=== PATIENT | female | born 1975 | race Caucasian/White ===

== ENCOUNTER 2016-10-16 18:05 | Emergency (ER) | payer BC ==
[2016-10-16 18:20] VITALS: TEMP 97.5
[2016-10-16] MEDS ORDERED: EPINEPHrine HCL AMP 1 MG/ML AMP IM ONE (18:20)
[2016-10-16] MEDS ORDERED: diphenhydrAMINE HCL 50 MG/ML VIAL IM ONE (18:20)
[2016-10-16] MEDS ORDERED: predniSONE 10 MG TAB PO ONE (19:08)
--- NOTE | 2016-10-16 19:12 | ED.PDOC ---
History of Present Illness - General Chief Complaint: Allergic Reaction Stated Complaint: allergic reaction Time Seen by Provider: 10/16/16 19:07 Source: patient, RN notes reviewed, Vital Signs reviewed Exam Limitations: no limitations - History of Present Illness Initial Comments: Ms. Angle Juarez 41 y/o female undergoing allergy immunotherapy 3 x a week stated that she received one this afternoon and one hour later felt sob,chest heaviness ,feels tongue got big. Timing/Duration: 1-3 hours Severity: moderate Improving Factors: nothing Worsening Factors: other - see hpi Associated Symptoms: shortness of breath Allergies/Adverse Reactions: Allergies NO KNOWN ALLERGY Allergy (Verified 10/16/16 18:20) Home Medications: Ambulatory Orders Cetirizine HCl [ZyrTEC] 10 mg PO DAILY 10/16/16 Epinephrine [Epipen 2-Po] 0.3 mg IJ ONCE #1 ml 10/16/16 Review of Systems - Review of Systems Constitutional: States: no symptoms reported EENTM: States: no symptoms reported Respiratory: States: see HPI Cardiology: States: no symptoms reported Gastrointestinal/Abdominal: States: no symptoms reported Genitourinary: States: no symptoms reported Musculoskeletal: States: no symptoms reported Skin: States: no symptoms reported Neurological: States: no symptoms reported Endocrine: States: no symptoms reported Hematologic/Lymphatic: States: no symptoms reported Past Medical History (General) - Patient Medical History Hx Congestive Heart Failure: No Hx Diabetes: No Surgical History: other - ,knee,cardiac and uterine ablation - Vaccination History Hx Influenza Vaccination: Yes - Social History Hx Tobacco Use: No Family Medical History - Family History Mother Family History: Unknown Living Status: Unknown Physical Exam - Physical Exam General Appearance: Alert, Anxious, No apparent distress Eye Exam: bilateral normal Ears, Nose, Throat: hearing grossly normal, normal ENT inspection, normal pharynx Neck: non-tender, full range of motion, supple Respiratory: chest non-tender, lungs clear, normal breath sounds, no respiratory distress, no accessory muscle use Cardiovascular/Chest: normal peripheral pulses, regular rate, rhythm, no edema, no gallop, no JVD, no murmur Peripheral Pulses: radial,right: 2+, radial,left: 2+ Gastrointestinal/Abdominal: normal bowel sounds, non tender, soft, no organomegaly, no pulsatile mass Back Exam: normal inspection, no CVA tenderness, no vertebral tenderness Extremity: normal range of motion, non-tender, normal inspection, no pedal edema Neurologic: no motor/sensory deficits, alert, normal mood/affect, oriented x 3 Skin Exam: normal color, warm/dry Progress - Results/Orders Results/Orders: feeling better after a odse of 0.3mg epinephrine i.m. Departure - Departure Clinical Impression: Anaphylaxis Qualifiers: Encounter type: initial encounter Qualified Code(s): T78.2XXA - Anaphylactic shock, unspecified, initial encounter Time of Disposition: 19:17 Disposition: Discharge to Home or Self Care Departure Forms: ED Discharge - Pt. Copy, Patient Portal Self Enrollment Referrals: Leonardo Vega III, MD [Primary Care Provider] - 1-2 Weeks Prescriptions: Epinephrine [Epipen 2-Po] 0.3 mg IJ ONCE #1 ml Home Medications: Ambulatory Orders Cetirizine HCl [ZyrTEC] 10 mg PO DAILY 10/16/16 Epinephrine [Epipen 2-Po] 0.3 mg IJ ONCE #1 ml 10/16/16 Additional Instructions: RETURN TO EMERGENCY ROOM NEEDED
[2016-10-16 20:02] VITALS: BP 109/71; O2SAT 99
== END 2016-10-16 20:00 | disposition home or self-care (01) ==
LOC: ER 18:05
DX: T78.2XXA Anaphylactic shock, unspecified, initial encounter (principal)
CPT/HCPCS: J1200; J7512

== ENCOUNTER → 2016-12-10 | Outpatient (CLI) | payer SELFPAY ==
--- NOTE | 2016-12-10 08:45 | RAD ---
EXAM DESCRIPTION: Shoulder,Right 2 or More Views CLINICAL HISTORY: RIGHT SHOULDER PAIN COMPARISON: None Available. TECHNIQUE: 4 views of the right shoulder. FINDINGS: The shoulder is well mineralized and normally aligned with very little degenerative change. There is a benign bony spur or excrescence extending from the inferior surface of the distal clavicle towards the coracoid process consistent with either a benign osteochondroma or evidence of an old injury or exuberant calcification and ossification of the coracoclavicular ligament. The appearance is benign and no further workup is recommended. No fracture or dislocation is seen. The distal clavicle may be very slightly high riding relative to the acromion suggesting either a recent or prior partial AC separation. IMPRESSION: 1. Very slight elevation of the distal clavicle suggesting either a recent or previous AC joint injury. 2. Bony thickening and prominence along the inferior surface of the clavicle suggesting either a benign osteochondroma or old ossified injury of the coracoclavicular ligament 3. The glenohumeral articulation is normal. Electronically signed by: Misael Wu MD 12/10/2016 8:44 AM CDT
== END | disposition home or self-care (01) ==
LOC: RAD 07:57
PROVIDERS: ATTEND Orthopaedic Surgery
DX: M25.511 Pain in right shoulder (principal)